=== PATIENT | male | born 1960 | race Caucasian/White ===

== ENCOUNTER 2017-08-08 08:25 | Outpatient (CLI) | payer OTHER ==
--- NOTE | 2017-08-08 09:46 | CT ---
CT ABDOMEN AND PELVIS NONCONTRAST: HISTORY: Hematuria. FINDINGS: Each renal collecting system, ureter, and the urinary bladder are decompressed without stone apparent . Lack of contrast limits evaluation for other abnormalities. Nonspecific lymph nodes are scattered ab out the retroperitoneum. Spleen is upper limits of normal in size. No evidence of bowel obstruction . Liver is diffusely hypodense. IMPRESSION: 1. No CT evidence of urinary tract obstruction or calcification. 2. Hepatosteatosis. POS: OFF
== END 2017-08-08 08:26 | disposition home or self-care (01) ==
LOC: SCSCT 08:25
PROVIDERS: ATTEND Family Medicine
DX: R31.9 Hematuria, unspecified (principal); K76.0 Fatty (change of) liver, not elsewhere classified
CPT/HCPCS: 74176